=== PATIENT | female | born 1970 | race Caucasian/White ===

== ENCOUNTER → 2023-06-10 17:07 | Outpatient (REF) | payer OTHER, SELFPAY | LOC: RAD 17:07 | PROVIDERS: ATTENDING PHYSICIAN Nurse Practitioner Family | DX: R68.84 Jaw pain (principal) | CPT/HCPCS: 70110 ==

== ENCOUNTER → 2023-07-08 15:43 | Outpatient (REF) | payer OTHER, SELFPAY | LOC: HWWDC 15:43 | PROVIDERS: ATTENDING PHYSICIAN Nurse Practitioner Family; FAMILY PHYSICIAN Internal Medicine; REFERRING PHYSICIAN Obstetrics & Gynecology Gynecology | DX: Z12.31 Encounter for screening mammogram for malignant neoplasm of breast (principal) | CPT/HCPCS: 77063; 77067 ==

== ENCOUNTER → 2023-08-05 06:18 | Day surgery (SDC) | payer OTHER, SELFPAY | LOC: GI 06:18 | PROVIDERS: ATTENDING PHYSICIAN Internal Medicine Gastroenterology | DX: Z12.11 Encounter for screening for malignant neoplasm of colon (principal); Q43.8 Other specified congenital malformations of intestine | CPT/HCPCS: G0121 ==

== ENCOUNTER 2025-01-31 07:39 | Emergency (ER) | payer BC, SELFPAY ==
[2025-01-31 07:44] VITALS: BP 102/72
--- NOTE | 2025-01-31 09:18 | ED.GENMED ---
History of Present Illness
General
Chief Complaint: Back Pain
Source: patient
Exam Limitations: none
Time Seen by Provider: 01/31/25 08:53
History of Present Illness
History of Present Illness:
54yoF with a history of hyperlipidemia, migraines, and GERD presenting for evaluation of low back pain. Symptoms have been ongoing for about 3 weeks. She denies any specific trauma. She is experiencing pain in her right lower back which radiates
into the right groin and right anterior thigh. She is also having some tingling in her right foot. She was initially seen at urgent care 2 weeks ago and was prescribed a Medrol Dosepak and a muscle relaxant which did not help. She has also seen
her PCP and [facility] orthopedics. She had an x-ray of the lumbar spine at [facility] which she was told was normal. She has an MRI scheduled for the end of next month. She just finished a course of prednisone yesterday. She has been taking Tylenol
and ibuprofen without much relief. Patient has also seen a chiropractor who gave her stretches to do. She denies any difficulty urinating, incontinence, saddle anesthesia, fevers. No history of IV drug use or malignancy. No prior history of back
surgeries.
Past History
Past History
ED Past Medical History: Other (Migraine headaches)
ED Past Surgical History: Other (Noncontributory)
Social History
Tobacco: Non-smoker
Alcohol: Occasional
Drug: None
Personal:
Living: with family
Employment: Employed
Family History
Family History: Other (Noncontributory)
Phy Exam
General Physical Exam
General Presentation: well appearing and no apparent distress
General Skin: warm and dry
General Habitus: normal
General Mental: alert
ENT Exam
ENT Exam: normocephalic
Cardiovascular Exam
Cardiovascular Exam: normal peripheral pulses (2+ DP pulses bilaterally)
Pulmonary Exam
Pulmonary Exam: no respiratory distress
Neurological Exam
Neurological Exam: alert and no motor deficits (5/5 strength in bilateral lower extremities)
Tracey Coma Scale
Eye Opening: Spontaneous
Verbal Response: Oriented
Motor Response: Obeys Commands
GCS Total Score: 15
Musculoskeletal Exam
Musculoskeletal Exam: other (+Tenderness to R paraspinal lumbar region. No skin changes. No midline spinous process tenderness. )
Skin Exam
Skin Exam: normal color and warm/dry
Psychiatric Exam
Psychiatric Exam: normal mood/affect
Course
Orders/Labs/Results
Orders:
Orders
01/31/25 09:18
Ketorolac [Toradol] 30 mg IM NOW STA
Vital Signs
Initial and Last Documented VS:
Initial Vital Signs
Temp Pulse Resp BP Pulse Ox
98.1 F 88 18 102/72 100
01/31/25 07:44 01/31/25 07:44 01/31/25 07:44 01/31/25 07:44 01/31/25 07:44
Last Documented Vital Signs
Temp Pulse Resp BP Pulse Ox
98.1 F 88 18 102/72 100
01/31/25 07:44 01/31/25 07:44 01/31/25 07:44 01/31/25 07:44 01/31/25 09:20
MDM/Problems Addressed
Differential Diagnosis Includes:
54yoF here with low back pain radiating down R leg x 3 weeks. Has been seen by PCP and orthopedics. Scheduled for MRI next month. Has taken prednisone, muscle relaxants, and OTC meds without relief. VSS. No red flags in history including no fevers,
saddle anesthesia, incontinence. Lower extremities are neurovascularly intact. Differential diagnosis includes: Lumbar radiculopathy/herniated disc, sciatica, spinal stenosis, muscle strain
Patient already had outpatient x-rays done. Do not feel further imaging in ED is warranted at this time. IM Toradol given for pain relief and prescription for gabapentin provided. Patient advised to f/u with PCP and ED return precautions reviewed.
She is in agreement with plan and was discharged in stable condition.
*Pulse Oximetry
SaO2: 100
Oxygen Mode of Delivery: Room air
Patient hypoxic: no
*Critical Care Note
Total Time (30-74mins, 75-104mins- exclusive of procedures): Not Applicable
ED Attending Note
-
Portions of this chart may have been created with voice recognition software.� Occasional wrong word or��sound alike� substitutions may have occurred due to the inherent limitations of voice recognition software.
Discharge Plan
Departure
Patient Disposition: Home (Routine Discharge)
Date of Disposition: 01/31/25
Time of Disposition: 09:20
Patient with high blood pressure during this ER visit?: No
Discharge Problem:
Low back pain radiating to right leg
Instructions: Radiculopathy (DC)
Prescriptions:
New
gabapentin 100 mg capsule
100 mg PO BID PRN (Reason: pain) Qty: 20 0RF
No Action
rizatriptan [Maxalt-GRAIN MANAGER] 10 MG tablet,disintegrating
10 mg PO PRN PRN (Reason: migraine)
Patient Comments:
1 tab at onset and 1 tab 1 hr after
prochlorperazine maleate 10 MG tablet
10 mg PO Q6HPRN PRN (Reason: nausea migraine) Qty: 14 0RF
oxycodone-acetaminophen 5 MG/325 MG tablet
1 tab PO Q4HPRN PRN (Reason: pain) Qty: 7 0RF
Activity Restrictions/Additional Instructions:
Take gabapentin as prescribed. You should start taking this only at nighttime but you may take twice a day as needed. Take Tylenol 650mg and ibuprofen 600mg every 6 hours as needed.
Please follow-up with your family doctor.
Return to the ER with any worsening symptoms including new incontinence or weakness.
Interventions
Interventions:
*Risk Screen - Suicide Last Done: 01/31/25 07:44
*General Assessment Last Done: 01/31/25 07:44
*Nursing Disposition Last Done: 01/31/25 09:43
ED-Musculoskeletal Assessment Last Done: 01/31/25 09:25
Discharge Date and Time
Discharge Date/Time: 01/31/25 09:44
Print Language: [email or web address]
[2025-01-31] MEDS: TORADOL 30 MG IM (09:32)
== END 2025-01-31 09:44 | disposition home or self-care (01) ==
LOC: EMR 07:39
PROVIDERS: EMERGENCY PHYSICIAN Emergency Medicine; FAMILY PHYSICIAN Internal Medicine
DX: M54.50 Low back pain, unspecified (principal); M79.604 Pain in right leg; E78.5 Hyperlipidemia, unspecified
CPT/HCPCS: 96372; 99284